=== PATIENT | female | born 1955 | race Caucasian/White ===

== ENCOUNTER 2023-09-09 04:02 | Emergency (ER) | payer OTHER, MEDICAID ==
[~2023-09-09] VITALS: Ht 154.9 cm; Wt 54.0 kg
[2023-09-09 04:10] VITALS: BP 126/40; PULSE 68; RESP 20; O2SAT 99
== END 2023-09-09 06:30 | disposition left against medical advice (07) ==
LOC: ER 04:02
DX: M25.551 Pain in right hip (principal); Z53.21 Procedure and treatment not carried out due to patient leaving prior to being seen by health care provider